=== PATIENT | female | born 1960 | race African-American/Black ===

== ENCOUNTER 2018-08-06 02:27 | Emergency (ER) | payer BC ==
[2018-08-06 03:05] VITALS: PULSE 85; TEMP 98.1; BMI 28.2
[2018-08-06 03:15] VITALS: BP 147/53
--- NOTE | 2018-08-06 03:41 | PDOC ---
History of Present Illness - General Chief Complaint: Blood Pressure Problem Stated Complaint: B/P PROBLEM Time Seen by Provider: 08/06/18 03:41 History Source: Patient Exam Limitations: No Limitations - History of Present Illness Initial Comments: 08/06/18 04:31 Miss finley is a 58-year-old female with no past medical history (because she does not see the doctor) who presents emergency department with a complaint of chest pain. She was in the midst of an argument with a family member, noted chest pressure, cluster chest and fell to the ground. Her daughter was present and called 911. She states the chest pressure was between 2 and 4 out of 10, no radiation to the arms or back. Chest pressure lasted several minutes and resolved. Patient states she feels better now. At the time she did have mild shortness of breath. No prior episodes like this. No exertional symptoms. PMH: Denies (unknown) PSH: Hysterectomy Meds: Denies ALL: NKDA Social: denies drug or alcohol use (+) tobacco use - 10 cigarettes/day ROS: GENERAL/CONSTITUTIONAL: No: fever, chills, weakness, loss of appetite. HEAD, EYES, EARS, NOSE AND THROAT: No: change in vision, ear pain, discharge, sore throat, throat swelling. CARDIOVASCULAR: Yes: chest pain No: lightheadedness, palpitations, syncope RESPIRATORY: No: cough, shortness of breath, wheezing, hemoptysis, stridor. GASTROINTESTINAL: No: nausea, vomiting, diarrhea, abdominal pain GENITOURINARY: No: dysuria, hematuria MUSCULOSKELETAL: No: back pain, neck pain, joint pain, muscle swelling or pain SKIN AND BREASTS: No: lesions, pallor, rash or easy bruising. NEUROLOGIC: No: headache, vertigo, paresthesias, weakness ENDOCRINE: No: unexplained weight gain or loss HEMATOLOGIC/LYMPHATIC: No: anemia, easy bleeding, swelling nodes. PE: GENERAL: The patient is in no acute distress. HEAD: Normal EYES: PERRLA, EOMI, sclera anicteric, conjunctiva clear. ENT: Ears normal, nares patent, oropharynx clear without exudates. Moist mucous membranes. NECK: Normal range of motion, supple LUNGS: Breath sounds equal, clear to auscultation bilaterally. HEART:Regular rate and rhythm, normal S1 and S2 without murmur, rub or gallop. ABDOMEN: Soft, nontender, normoactive bowel sounds. EXTREMITIES: Normal range of motion, no edema. NEUROLOGICAL: Cranial nerves II through XII grossly intact. Normal speech. No focal neurological deficits. MUSCULOSKELETAL: Back non-tender to palpation, no CVA tenderness SKIN: Warm, Dry, normal turgor, no rashes or lesions noted. Past History - Past Medical History Allergies/Adverse Reactions: Allergies Allergy/AdvReac Type Severity Reaction Status Date / Time No Known Allergies Allergy Verified 08/06/18 03:05 Home Medications: Ambulatory Orders NK [No Known Home Medication] 08/06/18 COPD: No - Immunization History Immunization Up to Date: Yes - Suicide/Smoking/Psychosocial Hx Smoking History: Never smoked Have you smoked in the past 12 months: No Information on smoking cessation initiated: No Hx Alcohol Use: No Drug/Substance Use Hx: No *Physical Exam - Vital Signs Last Vital Signs Temp Pulse Resp BP Pulse Ox 98.1 F 85 19 147/53 L 97 08/06/18 02:30 08/06/18 02:30 08/06/18 02:30 08/06/18 03:14 08/06/18 02:30 ED Treatment Course - LABORATORY CBC & Chemistry Diagram: 08/06/18 04:07 08/06/18 04:07 Medical Decision Making - Medical Decision Making 08/06/18 04:36 58 yo F presenting with a complaint of chest pain and elevated BP pt has unknown PMH Differential includes cardiac ischemia, tachysubo cardiomyopathy, pe, asthma exacerbation, pneumonia, pneumothorax, pleural effusion, costochondritis, pericarditis, GERD. Will do: Labs EKG CXR Pt has already stated that she can not stay in the hospital Will do labs but she must go to work tomorrow She will have to leave AMA 08/06/18 04:38 Laboratory Tests 08/06/18 04:07 WBC 6.1 Hgb 14.0 Hct 41.3 Plt Count 264 08/06/18 04:56 Laboratory Tests 08/06/18 08/06/18 04:07 04:07 WBC 6.1 Hgb 14.0 Hct 41.3 Plt Count 264 BUN 11 Creatinine 0.6 Creatine Kinase 181 Troponin I 0.06 H EKG: SR rate of 70 bpm, axis nml, intervals nml, poor r wave progression, st segment v2 08/06/18 06:05 I have had a long conversation with this patient She is absolutely refusing to stay in the hospital overnight She understands the risks of not staying in the hospital and that I am concerned about damage to the heart muscle She is allowing a repeat trop Pt signed out to Dr Reza 08/06/18 06:07 *DC/Admit/Observation/Transfer Diagnosis at time of Disposition: Chest pain - Discharge Dispostion Disposition: AGAINST MEDICAL ADVICE Condition at time of disposition: Fair - Referrals - Patient Instructions Printed Discharge Instructions: DI for High Blood Pressure, DI for Chest Pain Additional Instructions: Activity as tolerated. Stay hydrated. Further testing is necessary to make sure your heart is okay. You have opted to do this as an outpatient. You need to see your primary doctor and/or a electorate officer as soon as possible to get further testing. If you change your mind , or if your symptoms continue or worsen, you need to return to the ER. Continue your medications as previously prescribed by your physician. You should follow up with your primary doctor as soon as possible regarding today's emergency department visit. Return to the emergency department for any new or concerning symptoms, particularly persistent or worsening chest pain, headache or vision changes, difficulty breathing. - Post Discharge Activity
[2018-08-06 04:24] LABS: BASO % 0.7 % (0-2.0); EOS % 3.4 % (0-4.5); HEMATOCRIT 41.3 % (32.4-45.2); LYMPH % 31.2 % (8-40); MCH 32.5 pg (25.7-33.7); MCHC 33.8 g/dl (32.0-36.0); MEAN CELL VOLUME 95.9 fl (80-96); MEAN PLT VOLUME 8.6 fl (7.5-11.1); MONO % 10.8 % (3.8-10.2); NEUT % 53.9 % (42.8-82.8); PLATELET COUNT 264 K/MM3 (134-434); RBC 4.31 M/mm3 (3.60-5.2); RDW 13.3 % (11.6-15.6); WHITE BLOOD COUNT 6.1 K/mm3 (4.0-10.0)
[2018-08-06 04:53] LABS: ALBUMIN 3.6 g/dl (3.4-5.0); ALK PHOS 130 U/L (45-117); ANION GAP 9 MMOL/L (8-16); BILIRUBIN,TOTAL 0.3 mg/dL (0.2-1); BLOOD UREA NITROGEN 11 mg/dL (7-18); CALCIUM 8.9 mg/dL (8.5-10.1); CHLORIDE 108 mmol/L (98-107); CO2 25 mmol/L (21-32); CREATININE 0.6 mg/dL (0.55-1.3); GLUCOSE,RANDOM 83 mg/dL (74-106); SGOT/AST 22 U/L (15-37); SGPT/ALT 18 U/L (13-61); SODIUM 142 mmol/L (136-145); TOT PROT 7.6 g/dl (6.4-8.2)
--- NOTE | 2018-08-06 08:42 | PDOC ---
*Physical Exam - Vital Signs Last Vital Signs Temp Pulse Resp BP Pulse Ox 98.1 F 85 19 147/53 L 97 08/06/18 02:30 08/06/18 02:30 08/06/18 02:30 08/06/18 03:14 08/06/18 02:30 - Physical Exam Comments: 08/06/18 08:39 Blood pressure improved Ambulating steadily, asymptomatic without any chest pain or difficulty breathing ED Treatment Course - LABORATORY CBC & Chemistry Diagram: 08/06/18 04:07 08/06/18 04:07 - ADDITIONAL ORDERS Additional order review: Laboratory Results 08/06/18 08/06/18 07:10 04:07 Sodium 142 Potassium 4.0 Chloride 108 H Carbon Dioxide 25 Anion Gap 9 BUN 11 Creatinine 0.6 Creat Clearance w eGFR > 60 Random Glucose 83 Calcium 8.9 Total Bilirubin 0.3 AST 22 ALT 18 Alkaline Phosphatase 130 H Creatine Kinase 165 181 Creatine Kinase Index 1.6 CK-MB (CK-2) 3.0 Troponin I 0.06 H 0.06 H Total Protein 7.6 Albumin 3.6 08/06/18 04:07 RBC 4.31 MCV 95.9 MCHC 33.8 RDW 13.3 MPV 8.6 Neutrophils % 53.9 Lymphocytes % 31.2 Monocytes % 10.8 H Eosinophils % 3.4 Basophils % 0.7 *DC/Admit/Observation/Transfer Diagnosis at time of Disposition: Chest pain Qualifiers: Chest pain type: precordial pain Qualified Code(s): R07.2 - Precordial pain - Discharge Dispostion Disposition: AGAINST MEDICAL ADVICE Condition at time of disposition: Fair - Referrals - Patient Instructions Printed Discharge Instructions: DI for High Blood Pressure, DI for Chest Pain Additional Instructions: Activity as tolerated. Stay hydrated. Further testing is necessary to make sure your heart is okay. You have opted to do this as an outpatient. You need to see your primary doctor and/or a pi/senior research associate as soon as possible to get further testing. If you change your mind , or if your symptoms continue or worsen, you need to return to the ER. Continue your medications as previously prescribed by your physician. You should follow up with your primary doctor as soon as possible regarding today's emergency department visit. Return to the emergency department for any new or concerning symptoms, particularly persistent or worsening chest pain, headache or vision changes, difficulty breathing. - Post Discharge Activity
--- NOTE | 2018-08-06 16:22 | EKG ---
Test Reason : Blood Pressure : / mmHG Vent. Rate : 070 BPM Atrial Rate : 070 BPM P-R Int : 160 ms QRS Dur : 074 ms QT Int : 434 ms P-R-T Axes : 072 049 066 degrees QTc Int : 468 ms NORMAL SINUS RHYTHM ABNORMAL ECG Confirmed by MD Nickerson Edward ([id number]) on 08/06/2018 4:22:42 PM Referred By: Confirmed By:Judson Nickerson MD
== END 2018-08-06 08:44 | disposition left against medical advice (07) ==
LOC: JER 02:27
DX: R07.9 Chest pain, unspecified (principal); I10 Essential (primary) hypertension; F17.210 Nicotine dependence, cigarettes, uncomplicated
CPT/HCPCS: 36415; 80053; 82550; 82553; 84484; 85025; 93005; 93010; 99282-25

== ENCOUNTER 2018-10-13 20:44 | Emergency (ER) | payer SELFPAY ==
[2018-10-13 20:55] VITALS: BMI 24.2
[2018-10-13] MEDS ORDERED: ALBUTEROL SO4 2.5/IPRATROPIUM 0.5 INH SOL 3 ML VIAL.NEB. NEB ONE ×2 (22:21→23:25)
[2018-10-13] MEDS ORDERED: ALBUTEROL SO4 0.083% IH SOL 2.5 MG/3 ML VIAL.NEB. NEB ONE ×2 (22:21→23:25)
[2018-10-13] MEDS ORDERED: predniSONE 20 MG TABLET (UD) PO ONE (22:22)
[2018-10-13] MEDS ORDERED: predniSONE 20 MG TABLET (UD) ONE (23:25)
--- NOTE | 2018-10-13 23:37 | PDOC ---
History of Present Illness - General Chief Complaint: Cold Symptoms Stated Complaint: WHEEZING,SWEATS Time Seen by Provider: 10/13/18 22:19 History Source: Patient Exam Limitations: No Limitations - History of Present Illness Initial Comments: 10/13/18 23:34 Patient is a 58-year-old female stripped bronchitis, hysterectomy complaining of coughing since yesterday. States her cough is dry and nonproductive associated with hot and cold chills, shortness of breath/wheezing. She is a smoker 15 cigarettes per day. States she has been treated for bronchitis in the past. Denies fever, recent travel, sick contacts, chest pain. No family history of PE/DVT PMH X: As above ALL; NKDA GENERAL/CONSTITUTIONAL: [No fever or chills. No weakness. No weight change.] HEAD, EYES, EARS, NOSE AND THROAT: [No change in vision. No ear pain or discharge. No sore throat.] CARDIOVASCULAR: [No chest pain or shortness of breath.] RESPIRATORY: [No cough, wheezing, or hemoptysis.] GASTROINTESTINAL: [No nausea, vomiting, diarrhea or constipation. No rectal bleeding.] GENITOURINARY: [No dysuria, frequency, or change in urination.] MUSCULOSKELETAL: [No joint or muscle swelling or pain. No neck or back pain.] SKIN AND BREASTS: [No rash or easy bruising.] NEUROLOGIC: [No headache, vertigo, loss of consciousness, or loss of sensation.] PSYCHIATRIC: [No depression or anxiety.] ENDOCRINE: [No increased thirst. No abnormal weight change.] HEMATOLOGIC/LYMPHATIC: [No anemia, easy bleeding, or history of blood clots.] ALLERGIC/IMMUNOLOGIC: [No hives or skin allergy. No latex allergy.] GENERAL: [The patient is awake, alert, and fully oriented, in no acute distress , coughing.] HEAD: [Normal with no signs of trauma.] EYES: [Pupils equal, round and reactive to light, extraocular movements intact, sclera anicteric, conjunctiva clear.] ENT: [Ears normal, nares patent, oropharynx clear without exudates. Moist mucous membranes.] NECK: [Normal range of motion, supple without lymphadenopathy, JVD, or masses.] LUNGS: [Breath sounds equal, clear to auscultation bilaterally. (+) b/l wheezes , and no crackles.] HEART: [Regular rate and rhythm, normal S1 and S2 without murmur, rub.] ABDOMEN: [Soft, nontender, normoactive bowel sounds. No guarding, no rebound. No masses.] EXTREMITIES: [Normal range of motion, no edema. No clubbing or cyanosis. No cords, erythema, or tenderness.] NEUROLOGICAL: [Cranial nerves II through XII grossly intact. Normal speech, normal gait.] PSYCH: [Normal mood, normal affect.] SKIN: [Warm, Dry, normal turgor, no rashes or lesions noted.] Past History - Past Medical History Allergies/Adverse Reactions: Allergies Allergy/AdvReac Type Severity Reaction Status Date / Time No Known Allergies Allergy Verified 10/13/18 20:50 Home Medications: Ambulatory Orders Albuterol Sulfate Inhaler - [Ventolin HFA Inhaler -] 2 puff IH Q4H #1 inhaler Azithromycin [Zithromax] 500 mg PO DAILY #3 tablet 10/14/18 Prednisone [Deltasone] 40 mg PO DAILY #10 tablet 10/14/18 COPD: No HTN: Yes (takes no medicine) - Immunization History Immunization Up to Date: Yes - Suicide/Smoking/Psychosocial Hx Smoking History: Current every day smoker Have you smoked in the past 12 months: No Number of Cigarettes Smoked Daily: 10 Information on smoking cessation initiated: No Hx Alcohol Use: No Drug/Substance Use Hx: No *Physical Exam - Vital Signs Last Vital Signs Temp Pulse Resp BP Pulse Ox 98.8 F 99 H 20 226/89 H 95 10/13/18 20:50 10/13/18 20:50 10/13/18 20:50 10/13/18 20:50 10/13/18 20:50 Moderate Sedation - Procedure Monitoring Vital Signs: Procedure Monitoring Vital Signs Temperature 98.8 F 10/13/18 20:50 Pulse Rate 99 H 10/13/18 20:50 Respiratory Rate 20 10/13/18 20:50 Blood Pressure 226/89 H 10/13/18 20:50 O2 Sat by Pulse Oximetry (%) 95 10/13/18 20:50 ED Treatment Course - RADIOLOGY Radiology Studies Ordered: Category Date Time Status CHEST PA & LAT [RAD] Stat Radiology 10/13/18 22:21 Ordered Medical Decision Making - Medical Decision Making 10/13/18 23:34 Patient is a 58-year-old female stripped bronchitis, hysterectomy complaining of coughing since yesterday. States her cough is dry and nonproductive associated with hot and cold chills, shortness of breath/wheezing. She is a smoker 15 cigarettes per day. States she has been treated for bronchitis in the past. Denies fever, recent travel, sick contacts, chest pain. No family history of PE/DVT. Symptoms consistent with colitis we will rule out pneumonia. Labs, chest x-ray reassess VSS 0100 patient continued to wheeze we'll continue neb treatment. 10/14/18 02:17 Patient is improved no wheezing currently. Selected Entries 10/14/18 01:47 Temperature 98.5 F Pulse Rate [ 84 Right Apical] Respiratory 18 Rate Blood Pressure 132/59 L [Right Arm] O2 Sat by Pulse 99 Oximetry (%) I discussed the physical exam findings, ancillary test results and final diagnoses with the patient. I answered all of the patient's questions. The patient was satisfied with the care received and felt comfortable with the discharge plan and treatment plan. The Patient agrees to follow up with the primary care physician within 24-72 hours. I advised patient to stop smoking *DC/Admit/Observation/Transfer Diagnosis at time of Disposition: Pneumonia Qualifiers: Pneumonia type: due to unspecified organism Laterality: unspecified laterality Lung location: lower lobe of lung Qualified Code(s): J18.1 - Lobar pneumonia, unspecified organism - Discharge Dispostion Disposition: HOME Condition at time of disposition: Stable - Prescriptions Prescriptions: Albuterol Sulfate Inhaler - [Ventolin HFA Inhaler -] 2 puff IH Q4H #1 inhaler Azithromycin [Zithromax] 500 mg PO DAILY #3 tablet Prednisone [Deltasone] 40 mg PO DAILY #10 tablet - Referrals Referrals: [facility] [Provider Group] - Patient Instructions Printed Discharge Instructions: DI for Pneumonia -- Adult Additional Instructions: Your Discharge Instructions: You must call primary care physician within 24 hours to arrange follow-up. Return to the Emergency Department with any new, persistent or worsening symptoms, for fever, chills, SOB, dizziness or any other concerning changes that may occur. Stop the smoking. - Post Discharge Activity
[2018-10-14] MEDS ORDERED: ALBUTEROL SO4 2.5/IPRATROPIUM 0.5 INH SOL 3 ML VIAL.NEB. NEB ONE ×2 (01:04→01:46)
[2018-10-14] MEDS ORDERED: AZITHROMYCIN 250 MG TABLET PO ONE (01:05)
[2018-10-14] MEDS ORDERED: AZITHROMYCIN 250 MG TABLET ONE (01:43)
[2018-10-14 01:48] VITALS: BP 132/59; PULSE 84; TEMP 98.5
== END 2018-10-14 02:38 | disposition home or self-care (01) ==
LOC: JER 20:44
PROC: 3E0F7GC Introduction of Other Therapeutic Substance into Respiratory Tract, Via Natural or Artificial Opening (ICD-10-PCS; principal; 2018-10-13)
PROC: 3E0F7GC Introduction of Other Therapeutic Substance into Respiratory Tract, Via Natural or Artificial Opening (ICD-10-PCS; 2018-10-13)
PROC: 3E0F7GC Introduction of Other Therapeutic Substance into Respiratory Tract, Via Natural or Artificial Opening (ICD-10-PCS; 2018-10-13)
DX: J18.1 Lobar pneumonia, unspecified organism (principal); I10 Essential (primary) hypertension; F17.210 Nicotine dependence, cigarettes, uncomplicated
CPT/HCPCS: 71046-TC-FY; 99281-25